=== PATIENT | female | born 1995 | race Caucasian/White ===

== ENCOUNTER 2017-04-24 14:29 | Emergency (ER) | payer MEDICAID ==
[~2017-04-24] VITALS: Ht 154.9 cm; Wt 87.1 kg
[2017-04-24 14:29] VITALS: BP_SYST 131
[2017-04-24 16:58] VITALS: BP_SYST 121
== END 2017-04-24 16:58 | disposition home or self-care (01) ==
LOC: SED 14:29
DX: L03.116 Cellulitis of left lower limb (principal); L03.115 Cellulitis of right lower limb
CPT/HCPCS: 99283